=== PATIENT | female | born 1945 | race Caucasian/White ===

== ENCOUNTER → 2018-06-03 | Outpatient (CLI) | payer OTHER, MEDICARE ==
--- NOTE | ~2018-06-03 | PATH ---
[facility] [address] [place] [address] PATHOLOGY RPT PROCEDURE Name: MILLA WILCOX Room #: REG [facility] Lazara.#: [id number] Admission: 06/03/18 Date of : 47 Discharge: Report #: [id number] Path Case #: [id number] [facility] Accession Number: [id number] . 01 Material submitted: . RIGHT BREAST MASS . 01 Clinical history: . None provided . 02 Diagnosis: Breast "right breast biopsy 9:00/7 cm": - Infiltrating ductal carcinoma measuring approximately 1 cm in greatest dimension. See comment. (SHA:thor; 06/05/2018) QMS/06/05/2018 . 02 Comment: This case was also reviewed by Dr. Caldera. This case was also discussed with Dr. Gerald Basurto on 06/05/2018 at 3:00 p.m. Predictive breast markers will be ordered on block A2 and once those are available, an additional report will follow. . . BIOPSY SYNOPTIC . Tumor Site: Right breast biopsy Tumor type : infiltrating ductal carcinoma Tubules: 3 Nuclear Pleomorphism: 2 Mitotic Count: 1 Overall Grade: 2 Lymphatic Invasion: Not identified Perineural Invasion: Not identified Ductal Carcinoma In Situ: Not identified . Predictive breast markers will be ordered on block A2 and once those available, an additional report will follow. . (SHA:thor; 06/05/2018) . . 02 Electronically signed: . Akin Burkett MD, Pathologist NPI- [id number] . 01 Gross description: . [address] [address] PATHOLOGY RPT PROCEDURE Name: MILLA WILCOX Room #: REG [facility]#: [id number] Admission: 06/03/18 Date of : 47 Discharge: Report #: [id number] Path Case #: [id number] Received in formalin labeled "Milla Wilcox right breast 9:00 7 cm," are multiple needle cores of yellow-griffin fibrofatty tissue measuring 3.1 x 3.2 x 0.8 cm in aggregate dimensions. The tissue submitted in its entirety in cassette A1 through A3. The cold ischemic time is 5 minutes. The total formalin fixation time is 29 hours. (TSD; 06/03/2018) TOB/TOB . 02 Pathologist provided ICD-10: C50.911 . 02 CPT . 264876 Specimen Comment: A courtesy copy of this report has been sent to Specimen Comment: [phone], . Specimen Comment: Report sent to / DR BASURTO Performed at: [address], [place] [id number] MD Rishi Bae MD Phone: [phone] Performed at: [address] [id number] MD Suyapa Malik MD Phone: [phone]
== END | disposition home or self-care (01) ==
LOC: ULTRA 04:22
DX: C50.911 Malignant neoplasm of unspecified site of right female breast (principal); R92.1 Mammographic calcification found on diagnostic imaging of breast